=== PATIENT | female | born 1985 | race Caucasian/White ===

== ENCOUNTER 2017-10-29 15:44 | Emergency (ER) | payer SELFPAY | END 2017-10-29 16:53 | disposition home or self-care (01) | LOC: ERS 15:44 | DX: E04.1 Nontoxic single thyroid nodule (principal); Z87.891 Personal history of nicotine dependence | CPT/HCPCS: 99283 ==

== ENCOUNTER → 2017-11-15 | Day surgery (SDC) | payer OTHER ==
[2017-11-14 09:50] VITALS: BMI 42.9
[~2017-11-15] MED LIST: Lidocaine 1% PF 5 ML VIAL ONE; Sodium Bicarbonate 2.5 MEQ/5 ML VIAL ONE
--- NOTE | 2017-11-15 11:28 | ULT ---
ULTRASOUND GUIDED THYROID FINE NEEDLE ASPIRATION: History: Left thyroid nodule. Comparison: Thyroid ultrasound, 10-31-17. Technique/Findings: The patient was brought to the ultrasound suite where all questions were answered. The patient's left neck was prepped and draped in normal sterile fashion. Informed consent was obtain ed. Time out was performed. Using ultrasound guidance, the left thyroid nodule was visualized and aspirated using 25 gauge needle x 4. This was performed after local infiltration of soft tissues. The patient tolerated the procedure well without complication. IMPRESSION: Technically successful ultrasound guided left thyroid nodule fine needle aspiration. POS: YING
== END ==
LOC: ULT 09:46
PROVIDERS: ATTEND Otolaryngology Plastic Surgery within the Head & Neck
PROC: 0GBG3ZX Excision of Left Thyroid Gland Lobe, Percutaneous Approach, Diagnostic (ICD-10-PCS; principal; 2017-11-15)
DX: C73 Malignant neoplasm of thyroid gland (principal); Z88.1 Allergy status to other antibiotic agents; Z91.040 Latex allergy status; Z87.891 Personal history of nicotine dependence
CPT/HCPCS: 10022; 76942; 88173; 88305; J2001

== ENCOUNTER 2017-12-06 14:40 | Outpatient (CLI) | payer OTHER ==
[~2017-12-06 14:40] MED LIST changes: +Iopamidol 370 76% 100 ML VIAL ONE; -Lidocaine 1% PF 5 ML VIAL ONE; -Sodium Bicarbonate 2.5 MEQ/5 ML VIAL ONE
--- NOTE | 2017-12-06 16:38 | CT ---
CONTRAST ENHANCED CT IMAGES OF SOFT TISSUE NECK: History: Patient with history of papillary thyroid carcinoma. Technique: Contrast enhanced CT images of the soft tissue neck is obtained. FINDINGS: There is an approximately 1.5 cm area of hypodensity in the upper pole of the right thyroid lobe. The re is a partially calcified smaller approximately 1.2 cm lesion in the left thyroid lobe, more inferi vanessa. This is likely the biopsied lesion. The lesion has focal areas of calcification and is compatib le with the patient's thyroid malignancy. Some mildly enlarged right and left deep cervical and spinal accessory chain lymph nodes seen. None a re significantly enlarged, all measuring less than approximately 6-7 mm in their greatest dimension. None of the lymph nodes appear to be centrally necrotic. No evidence of pulmonary parenchymal lesions seen. No osseous lesions seen. IMPRESSION: 1. Left thyroid lesion compatible with the patient's known thyroid malignancy. No obvious evidence of metastatic disease seen. POS: YING
== END 2017-12-06 14:41 | disposition home or self-care (01) ==
LOC: CT 14:40
PROVIDERS: ATTEND Otolaryngology Plastic Surgery within the Head & Neck
DX: C73 Malignant neoplasm of thyroid gland (principal); E07.9 Disorder of thyroid, unspecified
CPT/HCPCS: 70491

== ENCOUNTER 2017-12-12 07:56 | Inpatient (IN) | payer OTHER ==
[2017-12-11 13:22] VITALS: BMI 41.5
[2017-12-12] MEDS ORDERED: Lidocaine 1% w/Epinephrine 1:100K 30 ML VIAL ONE (10:41)
[2017-12-12] MEDS ORDERED: Dexmedetomidine 200 MCG/2 ML VIAL ONE (11:21)
[2017-12-12] MEDS ORDERED: Fentanyl 100 MCG/2 ML VIAL ONE ×4 (11:21→14:34)
[2017-12-12] MEDS ORDERED: Ondansetron HCl/PF 4 MG/2 ML Vial IVP PRN (14:20)
[2017-12-12] MEDS ORDERED: Hydrocodone-Acetamin 15 ML UDCUP PO PRN ×2 (15:26)
[2017-12-12] MEDS ORDERED: diphenhydrAMINE 25 MG CAP PO PRN (15:47)
[2017-12-12] MEDS: Ondansetron HCl/PF 4 MG/2 ML Vial SLOW IVP PRN (15:55)
--- NOTE | 2017-12-12 16:12 | OP ---
PREOPERATIVE DIAGNOSIS: Thyroid cancer. POSTOPERATIVE DIAGNOSES: Thyroid cancer. PROCEDURE PERFORMED: Total thyroidectomy with intraoperative laryngeal nerve monitor. SURGEON: Dr. Clark العارقي. ESTIMATED BLOOD LOSS: 20 mL COMPLICATIONS: None. ANESTHESIA: GETA. PROCEDURE IN DETAIL: The patient was taken to the operating room and placed on the table. General e ndotracheal anesthesia was obtained by the Anesthesia staff. The laryngeal electrodes were noted to be between the vocal cords bilaterally using the indirect GlideScope. The tube was secured in the mi dline of the upper lip. Shoulder roll was placed. The patient was prepped and draped in standard jones rgical fashion. Following this, an incision was made through skin, subcutaneous tissue, and the plat ysmal layer using a 15 blade. The strap muscles were identified, in the midline, staying i mmediately adjacent to the capsule of the thyroid gland. Dissection was then carried medially. The middle thyroid vein was suture ligated from the superior pole vascular pedicle was identified and was suture ligated using a 2-0 silk immediately adjacent to the gland and superior parathyroid glands we re identified and were retracted. Following this, inferiorly, the recurrent laryngeal nerve was iden tified on the right, coursing approximately 15 degree angle from the tracheoesophageal groove and on the left side was coursing approximately 30 degrees from the tracheoesophageal groove. As the recurr ent laryngeal nerve was identified, the gland was freed from this area. Inferior thyroid artery was identified and was suture ligated back laterally. Following this, Salvador's ligaments were transected and the gland in its entirety was removed from the patient's body. There were bilateral solid and co ncerning appearing nodules noted. The wound was irrigated, a drain was placed. The platysmal layer was closed using Monocryl as well as strap muscle layer and subcuticular layer. Dermabond was placed on the skin. The patient tolerated the procedure well.
[2017-12-12] MEDS: Sodium Chloride 0.45% 1,000 ML IV SCH (17:37)
[2017-12-12] MEDS ORDERED: Acetaminophen 325 MG TAB PO PRN (20:35)
[2017-12-12] MEDS: Calcium Carbonate 500 MG TAB PO SCH (21:00)
[2017-12-12] MEDS: CEFAZOLIN 1 GM, Admixture Fee 1 EACH in Sodium Chloride 0.9% 100 ML IVPB SCH (21:08)
[2017-12-13] MEDS: Ondansetron HCl/PF 4 MG/2 ML Vial SLOW IVP PRN (00:01)
[2017-12-13] MEDS ORDERED: Calcium Gluconate 4.6 MEQ in Sodium Chloride 0.9% 100 ML IVPB PRN (05:33)
[2017-12-13 06:54] LABS: ALT (SGPT) 20 U/L (8-55); AST (SGOT) 16 U/L (5-34); Albumin 4.1 g/dL (3.5-5.0); Alkaline Phosphatase 83 U/L (40-150); Anion Gap 15 mmol/L (10-20); BUN (Urea Nitrogen) 9 mg/dL (7.0-18.7); Bilirubin, Total 0.4 mg/dL (0.2-1.2); Calc. Creatinine Clearance 218 mL/min (70-130); Calcium 9.5 mg/dL (7.8-10.44); Carbon Dioxide 22 mmol/L (22-29); Chloride 102 mmol/L (98-107); Estimated GFR-MDRD Greater than 90; Globulin 3.2 g/dL (2.4-3.5); Glucose 93 mg/dL (70-105); Potassium 3.7 mmol/L (3.5-5.1); Protein, Total 7.3 g/dL (6.0-8.3); Sodium 135 mmol/L (136-145)
[2017-12-13] MEDS: CEFAZOLIN 1 GM, Admixture Fee 1 EACH in Sodium Chloride 0.9% 100 ML IVPB SCH ×2 (07:06→14:34)
[2017-12-13] MEDS: Sodium Chloride 0.45% 1,000 ML IV SCH ×2 (07:11)
[2017-12-13] MEDS ORDERED: Ascorbic Acid 500 mg Chewable Tablet PO SCH (09:00)
[2017-12-13] MEDS ORDERED: Calcitriol 0.25 MCG CAP PO SCH (09:00)
[2017-12-13] MEDS ORDERED: Multivitamin W/ Minerals 1 TAB PO SCH (09:00)
[2017-12-13] MEDS ORDERED: TURMERIC ROOT EXTRACT 500 MG PO SCH (09:00)
[2017-12-13] MEDS: Calcium Carbonate 500 MG TAB PO SCH ×2 (09:48→14:50)
--- NOTE | 2017-12-13 11:46 | PRG ---
DATE OF SERVICE: 12/13/2017 SUBJECTIVE: Postop total thyroidectomy, overall doing well. Reports a restless night, some pain and nausea reported, but no vomiting. OBJECTIVE: She is well-developed, well-nourished in no acute distress. Vital signs are stable. Eduardo cium was normal. Last reading was 9.5 at 4:50 this morning. Reports mild fatigue. Her drain is in place. There was minimal drainage noted. ASSESSMENT: Postoperative total thyroidectomy. PLAN: Drain was removed successfully. A small pressure bandage placed for leakage. Authorized Zofr an for nausea. No discharge at this time. We will consult with Dr. العراقي concerning when discharge will occur and continue current hospital plan.
[2017-12-13 15:46] VITALS: TEMP 98.5
[2017-12-13 18:36] VITALS: BP 130/86
== END 2017-12-13 18:10 | disposition home or self-care (01) | DRG 627 ==
LOC: SDC 07:56 → SURG A 15:31
PROVIDERS: ADMIT Otolaryngology Plastic Surgery within the Head & Neck; ATTEND Otolaryngology Plastic Surgery within the Head & Neck
PROC: 0GTK0ZZ Resection of Thyroid Gland, Open Approach (ICD-10-PCS; principal; 2017-12-12)
DX: C73 Malignant neoplasm of thyroid gland (principal); Z83.3 Family history of diabetes mellitus
CPT/HCPCS: 36415; 82310; 85014; 88307; J0690; J2001; J2270; J2405; J3010; J7050

== ENCOUNTER 2018-01-24 10:17 | Outpatient (CLI) | payer OTHER ==
--- NOTE | 2018-01-24 14:23 | NM ---
NUCLEAR MEDICINE THYROID ABLATION THERAPY: HISTORY: Papillary carcinoma of the thyroid gland status post near-total thyroidectomy. RADIOIODINE THERAPY: After discussing the risks and benefits, alternatives, and radiation precaution issues with the patie nt, written and verbal consent was obtained to administer radioiodine. The patient verbalized unders tanding. 99 mCi of iodine 131 were administered orally without complications. The patient will foll ow up with Dr. Clark العراقي. POS: OFF
== END 2018-01-24 10:18 | disposition home or self-care (01) ==
LOC: NM 10:17
PROVIDERS: ATTEND Otolaryngology Plastic Surgery within the Head & Neck
DX: C73 Malignant neoplasm of thyroid gland (principal)
CPT/HCPCS: 79005; A9517

== ENCOUNTER 2018-02-06 12:30 | Outpatient (CLI) | payer OTHER ==
--- NOTE | 2018-02-06 14:11 | NM ---
WHOLE BODY RADIOIODINE POST THERAPY SCAN: HISTORY: Malignant neoplasm of thyroid gland. Papillary carcinoma of the thyroid gland, status post near tota l thyroidectomy and radioiodine ablation with 99 millicuries of Iodine-131 on 01/24/2018. FINDINGS: There is focal uptake in the neck, consistent with residual thyroid tissue. No other abnormal areas of tracer localization is seen. IMPRESSION: No evidence of distinct metastasis. POS: YING
== END 2018-02-06 12:31 | disposition home or self-care (01) ==
LOC: NM 12:30
PROVIDERS: ATTEND Otolaryngology Plastic Surgery within the Head & Neck
DX: C73 Malignant neoplasm of thyroid gland (principal)
CPT/HCPCS: 78018

== ENCOUNTER 2019-12-30 14:29 | Outpatient (CLI) | payer OTHER ==
--- NOTE | 2019-12-30 16:11 | ULT ---
EXAM: ULTRASOUND SOFT TISSUE CHEST WALL SWELLIN12/30/19 HISTORY: Focal swelling involving the chest wall. The palpable area of concern involving the left anterior chest demonstrates a solid, somewhat homogen eous slightly hypoechoic mass measuring 2.0 x 6.9 x 5 cm. this mass appears to be circumscribed and i s definitely not a cyst. I am not certain as to the etiology of this. Conceivably this could be repre sent a lipoma or fatty tumor. Consider follow-up chest CT scan with IV contrast with a marker placed over the area of palpable concern is suggested for further evaluation. IMPRESSION: Large circumscribed solid, slightly hypoechoic, homogeneous solid appearing mass, possibly a fatty tu mor. A follow-up chest CT scan is recommended for further assessment with IV contrast with the area o f clinical concern marked during the examination. POS: OFF
== END 2019-12-30 14:30 | disposition home or self-care (01) ==
LOC: BICULT 14:29
PROVIDERS: ATTEND Family Medicine
DX: R22.2 Localized swelling, mass and lump, trunk (principal)